=== PATIENT | female | born 1935 | race Caucasian/White ===

== ENCOUNTER → 2016-12-03 | Outpatient (CLI) | payer MEDICARE ==
[~2016-12-03] MED LIST: ALEVE220 MG PO; COREG12.5 MG PO; DOXYCYCLINE100 M1 PO; DYRENIUM50 MG; FISH OIL1000 MG PO; LISINOPRIL40 MG PO; NASONEX0.05 MG/AC; POTASSIUM CHLO20 ME2 PO; PREVACID 15 MG15 M1 PO; TARKA 2 MG-2401 TER PO; TRAMADOL 50MG T50 M1 PO; VERAPAMIL SR 2240 MG PO; XANAX0.25 MG PO
[2016-12-03 11:46] LABS: LYMPH # 1.1 K/mm3 (0.7-4.5)
== END ==
LOC: RT 11:31
PROVIDERS: Otolaryngology
DX: Z01.810 Encounter for preprocedural cardiovascular examination (principal); Z01.812 Encounter for preprocedural laboratory examination